=== PATIENT | male | born 1955 ===

== ENCOUNTER → 2020-10-22 13:27 | Outpatient (CLI) | payer OTHER, MEDICAID, SELFPAY ==
[2020-10-22] MEDS: COVID-19 VACC #1, MRNA(MOD) 100 MCG/0.5 ML VIAL IM (13:50)
== END ==
PROVIDERS: Visit Provider Internal Medicine
DX: Z23 Encounter for immunization (principal)
CPT/HCPCS: 0011A; 91301

== ENCOUNTER → 2020-11-19 12:46 | Outpatient (CLI) | payer OTHER, MEDICAID, SELFPAY ==
[2020-11-19] MEDS: COVID-19 VACC #2, MRNA(MOD) 100 MCG/0.5 ML VIAL IM (12:54)
== END ==
PROVIDERS: Visit Provider Internal Medicine
DX: Z23 Encounter for immunization (principal)
CPT/HCPCS: 0012A; 91301